=== PATIENT | female | born 1995 | race Caucasian/White ===

== ENCOUNTER 2017-07-02 14:46 | Inpatient (IN) | payer OTHER ==
[~2017-07-02] VITALS: Ht 157.5 cm; Wt 54.4 kg
[2017-07-02] MEDS ORDERED: OXYTOCIN 20 UNITS in LACTATED RINGERS 1,000 ML IV SCH (15:30)
[2017-07-02] MEDS ORDERED: OXYTOCIN 10 UNITS/ML VIAL IM PRN ×2 (15:30→23:40)
[2017-07-02] MEDS ORDERED: METHYLERGONOVINE 0.2 MG/ML AMP IM PRN ×2 (15:30→23:40)
[2017-07-02] MEDS ORDERED: MISOPROSTOL 25 MCG TAB VG PRN (15:30)
[2017-07-02] MEDS ORDERED: NALBUPHINE 10 MG/ML AMP IVP PRN (15:30)
[2017-07-02] MEDS ORDERED: PROMETHAZINE 25 MG/ML VIAL IVP PRN (15:30)
--- NOTE | 2017-07-02 15:37 | NUR ---
PATIENT HAS BEEN SCREENED AND CATEGORIZED LOW NUTRITION RISK. PATIENT WILL BE SEEN WITHIN 7 DAYS OF ADMISSION. 07/09/[address]
[2017-07-02 16:22] LABS: BASOPHILS # (AUTO) 0.1 K/uL (0.00-0.22); BASOPHILS % (AUTO) 0.9 % (0.0-2.0); EOSINOPHILS # (AUTO) 0.1 K/uL (0-0.4); EOSINOPHILS % (AUTO) 0.8 % (0.0-4.0); HEMATOCRIT 35.4 % (36-48); HEMOGLOBIN 12.1 g/dL (12.0-16.0); LYMPHOCYTES % (AUTO) 19.9 % (20.5-51.1); MEAN CORPUSCULAR HEMOGLOBIN 32 pg (27-31); MEAN CORPUSCULAR HGB CONC 34 g/dL (33-37); MEAN CORPUSCULAR VOLUME 94 fL (80-94); MONOCYTES # (AUTO) 0.5 K/uL (0.8-1.0); MONOCYTES % (AUTO) 5.3 % (1.7-9.3); NEUTROPHILS # (AUTO) 7.6 K/uL (1.8-7.7); NEUTROPHILS % (AUTO) 73.1 % (42.2-75.2); PLATELET COUNT (AUTO) 197 K/uL (140-450); RED BLOOD CELL COUNT(AUTO) 3.76 MIL/uL (4.20-5.40); WHITE BLOOD COUNT (AUTO) 10.3 K/uL (4.8-10.8)
[2017-07-02 16:28] LABS: BILIRUBIN,URINE NEGATIVE (NEGATIVE); BLOOD, URINE NEGATIVE (NEGATIVE); COLOR,URINE YELLOW (YELLOW); LEUKOCYTE ESTERASE ,URINE NEGATIVE (NEGATIVE); NITRITE, URINE NEGATIVE (NEGATIVE); PH,URINE 7.5 (5.0-9.0); UGLUCOSE NEGATIVE (NEGATIVE)
[2017-07-02 16:29] LABS: APPEARANCE,URINE SLIGHTLY HAZY (CLEAR)
[2017-07-02 16:35] LABS: BARBITURATE, URINE NEG. ng/ml (NEG <=200); BENZODIAZEPINE, URINE NEG. ng/mL (NEG <=200); CANNABINOID, URINE POS. ng/mL (NEG <=50); COCAINE, URINE NEG. ng/mL (NEG <=300); OPIATE, URINE NEG. ng/mL (NEG <=2000); PHENCYCLIDINE SCREEN,URINE NEG. ng/mL (NEG <=25)
[2017-07-02] MEDS: LACTATED RINGERS 1,000 ML IV SCH ×2 (16:35→21:55)
[2017-07-02] MEDS ORDERED: MISOPROSTOL 25 MCG TAB ONE (16:45)
[2017-07-02] MEDS ORDERED: ROPIVACAINE 0.2%/NS PREMIX 250 ML EPI ONE ×2 (20:59→21:30)
[2017-07-02] MEDS ORDERED: PROMETHAZINE 25 MG/ML VIAL ONE (22:05)
[2017-07-02] MEDS ORDERED: diphenhydrAMINE 50 MG/ML VIAL IVP SCH (22:55)
[2017-07-02] MEDS ORDERED: OXYTOCIN 10 UNITS/ML VIAL ONE ×2 (23:36)
[2017-07-02] MEDS ORDERED: OXYTOCIN 20 UNITS/LR PREMIX 1,000 ML IV ONE (23:39)
[2017-07-02] MEDS ORDERED: BENZOCAINE/MENTHOL 20%-0.5% 60 GM CAN TP PRN (23:40)
[2017-07-02] MEDS ORDERED: TEMAZEPAM 15 MG CAP PO PRN (23:40)
[2017-07-02] MEDS ORDERED: HYDROcodone/APAP 5/325 MG 1 TAB TAB PO PRN (23:40)
[2017-07-02] MEDS ORDERED: MEASLES, MUMPS, AND RUBELLA 1 VIAL SQVAC PRN (23:40)
[2017-07-02] MEDS ORDERED: oxyCODONE/APAP 5/325 MG 1 TAB TAB PO PRN (23:40)
[2017-07-02] MEDS ORDERED: IBUPROFEN 800 MG TAB PO PRN (23:40)
[2017-07-03] MEDS: LACTATED RINGERS 1,000 ML IV SCH (00:45)
[2017-07-03] MEDS ORDERED: DIAZEPAM PFS 10 MG/2 ML SYR IVP ONE (02:35)
[2017-07-03 06:57] LABS: HEMATOCRIT 34.4 % (36-48); HEMOGLOBIN 11.8 g/dL (12.0-16.0)
[2017-07-03] MEDS ORDERED: INFLUENZA VIRUS VACCINE QUAD 0.5 ML SYR IMVAC SCH (11:00)
[2017-07-03] MEDS ORDERED: DOCUSATE SOD/SENNA 50/8.6 MG 1 TAB PO SCH (21:00)
[2017-07-03] MEDS ORDERED: LORazepam 1 MG TAB PO SCH (21:55)
[2017-07-04] MEDS ORDERED: LORazepam 1 MG TAB PO PRN (07:40)
== END 2017-07-04 09:30 | disposition home or self-care (01) | DRG 560 ==
LOC: MLD 14:46 → MFCC 07-03 03:05
PROVIDERS: ADMIT Obstetrics & Gynecology; ATTEND Obstetrics & Gynecology
PROC: 10E0XZZ Delivery of Products of Conception, External Approach (ICD-10-PCS; principal; 2017-07-02)
PROC: 10907ZC Drainage of Amniotic Fluid, Therapeutic from Products of Conception, Via Natural or Artificial Opening (ICD-10-PCS; 2017-07-02)
PROC: 3E0R3BZ Introduction of Anesthetic Agent into Spinal Canal, Percutaneous Approach (ICD-10-PCS; 2017-07-02)
PROC: 00HU33Z Insertion of Infusion Device into Spinal Canal, Percutaneous Approach (ICD-10-PCS; 2017-07-02)
PROC: 3E0234Z Introduction of Serum, Toxoid and Vaccine into Muscle, Percutaneous Approach (ICD-10-PCS; 2017-07-03)
DX: O69.81X0 Labor and delivery complicated by cord around neck, without compression, not applicable or unspecified (principal); O99.344 Other mental disorders complicating childbirth; F31.9 Bipolar disorder, unspecified; Z37.0 Single live birth; Z3A.39 39 weeks gestation of pregnancy; Z23 Encounter for immunization
CPT/HCPCS: 36415; 51702; 59409; 80305; 81003; 85018; 85025; 86592; 86886; 86900; 86901; 90715; C1758; J2550; J2590; J2795; J7120